=== PATIENT | female | born 1990 | race Two or more races ===

== ENCOUNTER 2016-09-09 02:14 | Emergency (ER) | payer OTHER | END 2016-09-09 03:54 | disposition home or self-care (01) | LOC: ED 02:14 | PROC: 0JQ00ZZ Repair Scalp Subcutaneous Tissue and Fascia, Open Approach (ICD-10-PCS; principal; 2016-09-09) | DX: S01.01XA Laceration without foreign body of scalp, initial encounter (principal); W01.0XXA Fall on same level from slipping, tripping and stumbling without subsequent striking against object, initial encounter; Y92.009 Unspecified place in unspecified non-institutional (private) residence as the place of occurrence of the external cause ==